=== PATIENT | male | born 1960 | race Caucasian/White ===

== ENCOUNTER 2017-09-09 22:17 | Observation (INO) | payer BC, SELFPAY ==
[2017-09-09 22:51] VITALS: BP 107/72; PULSE 70; RESP 20; TEMP 36.7; O2SAT 98; BMI 22.8
[2017-09-09 23:29] VITALS: BP 107/72; PULSE 70; RESP 20; TEMP 36.7; O2SAT 98; BMI 22.8
[2017-09-09 23:36] LABS: Bacteria Urine None Seen; RBC Urine None Seen (0-5/HPF)
[2017-09-09 23:49] LABS: Culture Indicated Urine Cult Not Indicated; WBC Urine 0-1/HPF (0-5/HPF)
[2017-09-10] VITALS (14 sets, daily range): BP systolic 109–128; BP diastolic 59–74; PULSE 68–95; RESP 14–20; TEMP 36.6–37.3; O2SAT 94–97; BMI 22.8
--- NOTE | 2017-09-10 | PATH_ITS ---
[facility] Accession Number: [id number] . 01 Material submitted: . APPENDIX . 02 Diagnosis: Appendix: Acute necrotizing appendicitis, possibly ruptured. MRV/09/14/2017 . 02 Electronically signed: . Danny Deleon MD, Pathologist NPI- [id number] . 01 Gross description: . Received in formalin, labeled appendix, is an intact appendix (length-2.5 cm, diameter-1.1 cm) with mukherjee-simon smooth and shiny focally eroded serosa and attached mesoappendix (up to 1.8 cm). The resection margin is received stapled. The lumen contains brown solid soft material. The wall is up to 0.3 cm thick. No nodules, masses or lesions are identified. The resection margin is inked black. Section code: (A1) resection margin en face and three additional serial sections; (A2) the bivalved tip. Specimen entirely submitted. ([id number]) /[facility] . 02 Pathologist provided ICD-10: K35.3 . 02 CPT . 877024 Performed at: 01 [facility] [address] [place] [address], [place], [place] [id number] MD Gerard Al MD Phone: [phone] Performed at: 02 [facility] [address] [place], [place] [id number] MD Yohan Huber MD Phone: [phone]
--- NOTE | 2017-09-10 00:30 | ED.ABDPAIN ---
HPI - Abdominal Pain General Chief Complaint: Abdominal Pain Stated Complaint: ABD PAIN NAUSEA NO APPETITE Time Seen by Provider: 09/10/17 00:12 Source: patient Mode of arrival: ambulatory Limitations: no limitations History of Present Illness HPI narrative: Patient is a 57-year-old male with right lower quadrant pain. Is been ongoing for the last 24 hr. Initially started in his umbilical region and is now down his right lower quadrant. He has not had fever or chills he is feeling nauseated no vomiting. The car ride over here. He states he has a history of kidney stones and gallstones. He has had a cholecystectomy. In this does not feel like a kidney stone. Related Data Home Medications Medication Instructions Recorded Confirmed CA PANTOTHENATE/FOLIC ACID/VIT 1 tab PO QDAY #0 05/20/11 (MULTIVITAMIN) S-ADENOSYLMETHIONINE (KOLBY-E) 200 mg PO QDAY #0 08/31/11 omega 7-owu-yqp-fish oil [Fish Oil] 1,000 mg PO #0 11/19/16 Allergies Allergy/AdvReac Type Severity Reaction Status Date / Time ketorolac [KETOROLAC] AdvReac Intermediate HIVES Verified 09/09/17 22:54 SULFA Allergy Mild PATIENT Uncoded 09/09/17 22:54 WAS 6 YRS OLD WHEN IT HAPPENED AND DOESN'T REMEMBER Review of Systems Review of Systems GENERAL: Denies chills, fatigue, malaise, fever, sweats, travel HEENT: Denies sinus pain, ear pain, sore throat, difficulty swallowing, neck pain RESPIRATORY: Denies dyspnea, cough, wheezing, hemoptysis, sputum. CARDIOVASCULAR: Denies chest pain, palpitations, orthopnea, edema GASTROINTESTINAL: see HPI : Denies dysuria, frequency, incontinence, hematuria, urinary retention, flank pain. MUSCULOSKELETAL: Denies weakness, joint pain, or bony pain SKIN: No rash, no erythema, no pruritus NEUROLOGIC: Denies weakness, dizziness, headache, numbness, change in speech, confusion PSYCHIATRIC: No concerning psychosocial issues. 12 point review of systems is negative except for those stated above and HPI PFSH Medical History GERD (gastroesophageal reflux disease) (Chronic Unknown) Chickenpox (Resolved 1993) Fractures (Resolved 1966) Gall stones (Resolved ~2011) Hx of major depression (Resolved Unknown) Kidney stones (Resolved 2002) Surgical History History of lithotripsy Status post cholecystectomy (08/31/11) Family History Father Age: 90 Diabetes mellitus Social History Smoking Status: Never smoker Exam Initial Vital Signs Initial Vital Signs: Vital Signs Temperature 98.1 F 09/09/17 22:51 Pulse Rate 70 09/09/17 22:51 Respiratory Rate 20 09/09/17 22:51 Blood Pressure 107/72 09/09/17 22:51 Pulse Oximetry 98 09/09/17 22:51 GENERAL: Well-appearing, well-nourished and in no acute distress. HEENT: Head atraumatic,EOMI, pupils reactive CARDIOVASCULAR: Regular rate and rhythm without murmurs, rubs or gallops. RESPIRATORY: Breath sounds equal bilaterally, no wheezes rales or rhonchi. ABDOMEN: Soft, right lower quadrant tenderness on with mild guarding no rebound no Parra's : No CVA tenderness EXTREMITIES: Normal range of motion, no clubbing or edema. NEUROLOGICAL: Alert and oriented x4.Normal gait and speech. Cranial nerves II through XII grossly intact. SKIN: Warm, dry, no laceration, no petechiae, no rashes or lesions. Course Orders Ordered: ED Orders 09/09/17 23:00 Urine Microscopic Stat 09/10/17 00:31 CT abdomen pelvis w con Stat 09/10/17 00:33 Complete Blood Count AUTO DIFF Stat Comprehensive Metabolic Panel Stat Lipase Stat Sodium Chloride (Normal Saline 0.9%) 1,000 mls @ 150 mls/hr IV CONT LIVAN Last Infusion: 09/10/17 03:08 Dose: 150 mls/hr Infusion: 09/10/17 01:12 Dose: 150 mls/hr Admin: 09/10/17 00:57 Dose: 150 mls/hr Discontinued Medications Levofloxacin (Levaquin) 750 mg in 150 mls @ 100 mls/hr IV NOW ONE Stop: 09/10/17 03:03 Last Infusion: 09/10/17 02:45 Dose: 100 mls/hr Admin: 09/10/17 01:40 Dose: 100 mls/hr Morphine Sulfate (Morphine) 2 mg IV NOW ONE Stop: 09/10/17 01:35 Last Admin: 09/10/17 01:38 Dose: 2 mg Consultations Consultation #1: Dr. Sumner accepts for admit. Time: 01:50 Vital Signs - 8 hr 09/09/17 22:51 09/09/17 23:29 09/10/17 01:50 Temperature 98.1 F 98.1 F 99.2 F Pulse Rate 70 70 73 Respiratory Rate 20 20 14 Blood Pressure 107/72 107/72 Blood Pressure [Left Arm] 122/74 H Pulse Oximetry 98 98 97 09/10/17 03:04 Temperature 98.8 F Pulse Rate 72 Respiratory Rate 20 Blood Pressure 118/70 Blood Pressure [Left Arm] Pulse Oximetry 96 MDM - Abdominal Pain Lab Data Attestation: I reviewed the patient's lab results. Result diagrams: 09/10/17 00:33 09/10/17 00:33 Lab Results 09/09/17 09/10/17 09/10/17 Range/Units 23:00 00:33 00:33 WBC 9.3 (4.5-11.0) X10^3/uL RBC 4.76 (4.5-5.9) X10^6/uL Hgb 14.0 (13.5-17.5) g/dL Hct 41.9 (41-53) % MCV 87.9 (80-100) fL MCH 29.5 (26-34) PG MCHC 33.5 (30-36) % RDW 13.7 (11.6-14.8) % Plt Count 190 (150-400) X10^3/uL Neut % (Auto) 73.1 (50-75) % Lymph % (Auto) 17.1 L (25-40) % Obion % (Auto) 8.1 (3-14) % Eos % (Auto) 1.1 L (2-4) % Baso % (Auto) 0.6 (0-2) % Neut # (Auto) 6800 H (7919-3158) /uL Sodium 140 (137-145) mmol/L Potassium 3.9 (3.4-5.1) mmol/L Chloride 100 (98-107) mmol/L Carbon Dioxide 30 (22-32) mmol/L BUN 11 (9-20) mg/dL Creatinine 0.90 (0.66-1.25) mg/dL Estimated GFR > 60.0 (>60) mL/min BUN/Creatinine Ratio 12.2 (6-22) Glucose 100 (70-100) mg/dL Calcium 9.4 (8.4-10.2) mg/dL Total Bilirubin 0.8 (0.2-1.3) mg/dL AST 62 H (17-59) IU/L ALT 37 (21-72) IU/L Alkaline Phosphatase 47 (38-126) U/L Total Protein 7.3 (6.3-8.2) g/dL Albumin 4.6 (3.5-5.0) g/dL Globulin 2.7 (1.7-4.1) g/dL Albumin/Globulin Ratio 1.7 (1.0-2.8) Lipase 70 (23-300) U/L Urine RBC None seen (0-5/HPF) Urine WBC 0-1/hpf (0-5/HPF) Urine Bacteria None seen (None) Ur Culture Indicated? Cult not indicated Micro UA Comment Not Reportable Point of care testing: Urine Dip Bedside Urine Glucose Negative Bedside Urine Bilirubin - Negative Bedside Urine Ketone ++ 40 Urine Specific Whitney 1.015 Bedside Urine Occult Blood - Negative Bedside Urine pH 6.0 Bedside Urine Protein - Negative Bedside Urine Urobilinogen - Negative Bedside Urine Nitrite - Negative Bedside Urine Leukocytes +/- [address] scan - abdomen: Radiologist's impression: fast food shift lead report: As appendical with an inflamed appendix measuring approximately 12 mm. His acute non perforated appendicitis. 5 mm mid left ureter stone with moderate left hydronephrosis. Discharge Plan Departure Patient Disposition: Admitted as Observation Clinical Impression: Acute appendicitis Discharge Date/Time: 09/10/17 02:45 Interventions: ED Discharge Assessment Last Done: 09/10/17 02:45 Admit Date/Time: 09/10/17 01:48 Admit Provider: Odalis Sumner
--- NOTE | 2017-09-10 00:31 | DI.CT.S_ITS ---
PROCEDURE: CT ABDOMEN PELVIS W CON INDICATIONS: Right lower quadrant pain TECHNIQUE: After the administration of intravenous contrast, 5 mm thick sections acquired from the diaphragm to the symphysis. 5 mm coronal and sagittal reformats were acquired. For radiation dose reduction, the following was used: automated exposure control, adjustment of mA and/or kV according to patient size. COMPARISON: [facility], US, US ABDOMEN, 05/12/2016, 9:59. [facility], [place], ABDOMEN COMPLETE, 05/20/2011, 19:44. FINDINGS: Image quality: Excellent. ABDOMEN: Lung bases: Lung bases are clear. Heart size is normal. Solid organs: A couple of low-density nodules are noted liver, one in the left hepatic lobe measuring 6 mm and one in the left hepatic lobe measuring 1.2 x 2.0 cm, most likely hepatic cysts or hemangioma. Liver is normal in size and enhancement. Gallbladder is surgically absent. Biliary system is non dilated. Pancreas enhances normally. Spleen is normal in size and enhancement. No adrenal nodules. There is a 5 mm stone in the proximal left ureter. Mild left hydronephrosis is present. A 2 mm focus is seen in the inferior pole the left kidney. Kidneys demonstrate normal size and enhancement. Peritoneum and bowel: Appendix is distended measuring up to 12 mm in diameter. There is an appendicolith at the base of the appendix. There is periappendiceal stranding. The CT findings are consistent with acute appendicitis. Bowel loops demonstrate normal caliber. There are scattered colonic diverticula patient now evidence for acute diverticulitis. A trace amount of free fluid is present. No free air. Nodes and vessels: No retroperitoneal or mesenteric adenopathy by size criteria. Aorta and inferior vena cava are normal in size. Miscellaneous: No ventral hernias. PELVIS: Genitourinary: Bladder wall thickness is normal. Prostate is prominent. Miscellaneous: No inguinal hernias or adenopathy. Bones: No suspicious bony lesions. No vertebral body compression fractures. IMPRESSION: 1. CT findings are consistent with acute appendicitis. 2. Left nephrolithiasis. There is 5 mm bony obstructive stone in the proximal left ureter causing mild hydronephrosis. 3. Diverticulosis without acute diverticulitis. 4. Two hepatic hypodensities, probably cysts or hemangioma. 5. Cholecystectomy. No significant discrepancy with the lieutenant shift supervisor radiology preliminary report. Dictated by: Mary Mcdonald M.D. on 09/10/2017 at 7:22 Approved by: Mary Mcdonald M.D. on 09/10/2017 at 7:34
[2017-09-10 00:43] LABS: Alanine Aminotransferase 37 IU/L (21-72); Albumin 4.6 g/dL (3.5-5.0); Albumin Globulin Ratio 1.7 (1.0-2.8); Alkaline Phosphatase 47 U/L (38-126); Aspartate Aminotransferase 62 IU/L (17-59); BUN Creatinine Ratio 12.2 (6-22); Bilirubin Total 0.8 mg/dL (0.2-1.3); Blood Urea Nitrogen 11 mg/dL (9-20); Calcium 9.4 mg/dL (8.4-10.2); Carbon Dioxide 30 mmol/L (22-32); Chloride 100 mmol/L (98-107); Estimated Glomerular Filt Rate > 60.0 mL/min (>60); Globulin 2.7 g/dL (1.7-4.1); Glucose 100 mg/dL (70-100); HEMOLYSIS < 15 (0-50); Lipase 70 U/L (23-300); Potassium 3.9 mmol/L (3.4-5.1); Sodium 140 mmol/L (137-145); Total Protein 7.3 g/dL (6.3-8.2)
[2017-09-10] MEDS: SODIUM CHLORIDE 0.9% 1,000 ML 150 ML IV (00:57)
[2017-09-10 00:59] LABS: Add Manual Diff / Slide Review NO; Basophils Percent Auto 0.6 % (0-2); Eosinophils Percent Auto 1.1 % (2-4); Hematocrit 41.9 % (41-53); Lymphocytes Percent Auto 17.1 % (25-40); Mean Corpuscular HGB Conc 33.5 % (30-36); Mean Corpuscular Hemoglobin 29.5 PG (26-34); Mean Corpuscular Volume 87.9 fL (80-100); Monocytes Percent Auto 8.1 % (3-14); Neutrophils Absolute Auto 6800 /uL (3000-5900); Neutrophils Percent Auto 73.1 % (50-75); Platelet Count 190 X10^3/uL (150-400); Red Blood Cell Count 4.76 X10^6/uL (4.5-5.9); Red Cell Distribution Width 13.7 % (11.6-14.8); White Blood Cell Count 9.3 X10^3/uL (4.5-11.0)
[2017-09-10] MEDS: SODIUM CHLORIDE 0.9% 1,000 ML 125 ML IV ×2 (01:30→09:30)
[2017-09-10] MEDS: MORPHINE 2 MG/ML INJ IV ×2 (01:38→05:49)
[2017-09-10] MEDS: levoFLOXacin 750 MG/150 ML PIGGYBACK 100 MG IV (01:40)
[2017-09-10] MEDS: LACTATED RINGERS 1,000 ML 42 ML IV ×2 (12:20→13:27)
[2017-09-10] MEDS: CEFOTETAN 2 GM/50 ML PIGGYBACK IV (12:20)
--- NOTE | 2017-09-10 13:22 | SUR.OPER ---
Supine on padded OR bed, head on pillow, arm padded and tucked at side, legs uncrossed, safety belt at thigh, tape over blanket over lower legs .
[2017-09-10] MEDS: BUPIVACAINE 0.5% MDV 50 ML INJ (13:29)
[2017-09-10] MEDS: LIDOCAINE 1% W/EPI INJ 20 ML INJ (13:30)
--- NOTE | 2017-09-10 13:34 | CM.DANOTE ---
Patient is a 57 year old male who was admitted on 09/10/17 for Abd Pain, Nausea, No appetite. Pt has [employer] OUT [employer] for insurance and his PCP is Dr. Mendosa. EMR was reviewed. Per MD, pt to have surgical procedure today and then likely d/c home tonight or tomorrow with no anticipated needs. SW met bedside with pt and explained role and he confirmed that he is Independent at baseline and drives and currently lives with his parents in [place]. Pt states that his parents are getting older but are still mostly Independent at baseline and could provide him with assist if needed. Pt does not anticipate any d/c needs and preference is home when medically stable and states that if he is not able to transport himself home then his mom could provide transportation. Pt denies any hx of HH or SNF. Plan: SW to follow after surgical procedure today towards likely pt d/c home tonight or tomorrow. SW to follow for any further identified needs. LIBORIO Sage Discharge Planning/Care Management CM Discharge Assessment Start: 09/10/17 13:28 Freq: Status: Active Protocol: Document 09/10/17 13:28 BF (Rec: 09/10/17 13:34 BF [id number]) Discharge Planning Assessment Assigned Valve Tester LIBORIO History Provided By Patient Has Patient been admitted in last 30 No days? Is this patient on Medicare? No Is the admit diagnosis the same? No Comment Api Prior Living Arrangements House Household Members family Type of transporation used prior to Drives own vehicle admit Comment Lives with his parents who are quite Independent themselves Independent with ADL's Yes Is patient alert and oriented? Yes Caregiver for Another No: helps his parents but they are independent Referrals Initiated None needed Comment surgical procedure today and then likely home with no needs . Discharge Plan Home Transportation Arrangement Parents can provide transport if pt cannot drive himself. Review Status In Process Next Review Type Discharge Review
--- NOTE | 2017-09-10 13:35 | P.HP_ITS ---
History of Present Illness Date Patient Seen: 09/10/17 Time Patient Seen: 10:33 Chief complaint: ABD PAIN NAUSEA NO APPETITE Narrative: Very pleasant and generally healthy 57-year-old gentleman who presented to the emergency room with complaint of right lower quadrant pain. He reported the pain had been ongoing for approximately 24 hr and had gradually migrated from the umbilical region to the right lower quadrant. Complained of nausea and anorexia but no vomiting. Patient History Medical History GERD (gastroesophageal reflux disease) (Chronic Unknown) Chickenpox (Resolved 1993) Fractures (Resolved 1966) Gall stones (Resolved ~2011) Hx of major depression (Resolved Unknown) Kidney stones (Resolved 2002) Surgical History History of lithotripsy Status post cholecystectomy (08/31/11) Family & Social History Family History: Reviewed 09/10/17 by Odalis Sumner MD Social History: household members family Prior Living Arrangements House Safety & Behavioral: Feels Safe in Current Yes Environment Been Physically Hurt or No Threatened By a Person Suicidal Ideation Description None Suicide Plan Description No Plan Tobacco & Substance use: Smoking Status Never smoker alcohol intake frequency a few times a month Substance Use Type does not use Meds Home Medications Medication Instructions Recorded Confirmed Type CA PANTOTHENATE/FOLIC ACID/VIT 1 tab PO QDAY #0 05/20/11 History (MULTIVITAMIN) S-ADENOSYLMETHIONINE (KOLBY-E) 200 mg PO QDAY #0 08/31/11 History omega 5-kjf-zsy-fish oil [Fish Oil] 1,000 mg PO DAILY #0 11/19/16 09/10/17 History Allergies Allergy/AdvReac Type Severity Reaction Status Date / Time Sulfa (Sulfonamide Allergy Mild PATIENT Verified 09/10/17 12:25 Antibiotics) WAS 6 YRS OLD WHEN IT HAPPENED AND DOESN'T REMEMBER ketorolac [KETOROLAC] AdvReac Intermediate HIVES Verified 09/09/17 22:54 SULFA Allergy Mild PATIENT Uncoded 09/09/17 22:54 WAS 6 YRS OLD WHEN IT HAPPENED AND DOESN'T REMEMBER Review of Systems Review of Systems All systems reviewed & are unremarkable except as noted in HPI and below Exam Vital Signs (past 8 hours): - 09/10/17 07:55 09/10/17 11:54 09/10/17 12:15 Temperature 98.5 F 98.2 F 98.4 F Pulse Rate 68 72 69 Respiratory Rate 16 16 16 Blood Pressure 116/72 125/72 H 109/68 Pulse Oximetry 97 96 97 Oxygen Delivery Method Room Air Narrative Exam Narrative: Very pleasant and healthy-appearing gentleman in no obvious distress. HEENT: Normocephalic and atraumatic, pupils equal round reactive to light accommodation with anicteric sclera Lungs: Clear to auscultation bilaterally Heart: Regular rate and rhythm without murmur rub or gallop Abdomen: Soft, profoundly tender to palpation in the right lower quadrant with some voluntary guarding and minimal rebound. Healed incisions are noted consistent with patient's history of cholecystectomy. No defects are appreciated. Active bowel sounds. Extremities: Warm and well perfused without edema Objective Labs Result Diagrams: 09/10/17 00:33 09/10/17 00:33 Labs: Laboratory Results - last 24 hr 09/09/17 09/10/17 09/10/17 23:00 00:33 00:33 WBC 9.3 RBC 4.76 Hgb 14.0 Hct 41.9 MCV 87.9 MCH 29.5 MCHC 33.5 RDW 13.7 Plt Count 190 Neut % (Auto) 73.1 Lymph % (Auto) 17.1 L Christian % (Auto) 8.1 Eos % (Auto) 1.1 L Baso % (Auto) 0.6 Neut # (Auto) 6800 H Sodium 140 Potassium 3.9 Chloride 100 Carbon Dioxide 30 BUN 11 Creatinine 0.90 Estimated GFR > 60.0 BUN/Creatinine Ratio 12.2 Glucose 100 Calcium 9.4 Total Bilirubin 0.8 AST 62 H ALT 37 Alkaline Phosphatase 47 Total Protein 7.3 Albumin 4.6 Globulin 2.7 Albumin/Globulin Ratio 1.7 Lipase 70 Urine RBC None seen Urine WBC 0-1/hpf Urine Bacteria None seen Ur Culture Indicated? Cult not indicated Micro UA Comment Not Reportable [address] [address] [address] Scan Report Signed Patient: Sudhir Butt MR#: [id number] : 1960 Acct:[id number] Age/Sex: 57 / M Date of Service: 09/10/17 Loc: [facility] Accession Number: [id number] Procedure: CT abdomen pelvis w con Ordering Provider: Josee Will D.O. PROCEDURE: CT ABDOMEN PELVIS W CON INDICATIONS: Right lower quadrant pain TECHNIQUE: After the administration of intravenous contrast, 5 mm thick sections acquired from the diaphragm to the symphysis. 5 mm coronal and sagittal reformats were acquired. For radiation dose reduction, the following was used: automated exposure control, adjustment of mA and/or kV according to patient size. COMPARISON: [facility], US, US ABDOMEN, 05/12/2016, 9:59. [facility], [place], ABDOMEN COMPLETE, 05/20/2011, 19:44. FINDINGS: Image quality: Excellent. ABDOMEN: Lung bases: Lung bases are clear. Heart size is normal. Solid organs: A couple of low-density nodules are noted liver, one in the left hepatic lobe measuring 6 mm and one in the left hepatic lobe measuring 1.2 x 2.0 cm, most likely hepatic cysts or hemangioma. Liver is normal in size and enhancement. Gallbladder is surgically absent. Biliary system is non dilated. Pancreas enhances normally. Spleen is normal in size and enhancement. No adrenal nodules. There is a 5 mm stone in the proximal left ureter. Mild left hydronephrosis is present. A 2 mm focus is seen in the inferior pole the left kidney. Kidneys demonstrate normal size and enhancement. Peritoneum and bowel: Appendix is distended measuring up to 12 mm in diameter. There is an appendicolith at the base of the appendix. There is periappendiceal stranding. The CT findings are consistent with acute appendicitis. Bowel loops demonstrate normal caliber. There are scattered colonic diverticula patient now evidence for acute diverticulitis. A trace amount of free fluid is present. No free air. Nodes and vessels: No retroperitoneal or mesenteric adenopathy by size criteria. Aorta and inferior vena cava are normal in size. Miscellaneous: No ventral hernias. PELVIS: Genitourinary: Bladder wall thickness is normal. Prostate is prominent. Miscellaneous: No inguinal hernias or adenopathy. Bones: No suspicious bony lesions. No vertebral body compression fractures. IMPRESSION: 1. CT findings are consistent with acute appendicitis. 2. Left nephrolithiasis. There is 5 mm bony obstructive stone in the proximal left ureter causing mild hydronephrosis. 3. Diverticulosis without acute diverticulitis. 4. Two hepatic hypodensities, probably cysts or hemangioma. 5. Cholecystectomy. No significant discrepancy with the overnight caregiver radiology preliminary report. Dictated by: Mary Mcdonald M.D. on 09/10/2017 at 7:22 Approved by: Mary Mcdonald M.D. on 09/10/2017 at 7:34 Assessment & Plan Plan: Assessment/Plan Narrative: Very pleasant 57-year-old gentleman with acute appendicitis who is very healthy. We discussed the risks and benefits of laparoscopic appendectomy and the patient expressed desire to complete the procedure. The operating room crew has been called. Quality VTE Deep Vein Thrombosis/Pulmonary Embolism Present on Admission: No
--- NOTE | 2017-09-10 13:39 | PM.OP.1 ---
Operative Date/Time/Diagnoses Date of procedure: 09/10/17 Time of procedure: 13:39 Pre-op diagnosis: Acute appendicitis Post-op diagnosis: same Procedure & Clinicians Procedure: Laparoscopic appendectomy Same procedure as scheduled: Yes Indications: Acute appendicitis Surgeon: Odalis Sumner Click Yes if Unassisted: Yes Anesthesia Type: General (Ahsaei) and Local Operative Notes Findings: Acute appendicitis without gross evidence of perforation Closure Type: primary Estimated Blood Loss (mL): 10 Procedure in detail: After obtaining informed consent, the patient was brought to the operating room and placed in the supine position on the operating table. Following successful induction of general endotracheal anesthesia, appropriate padding of all damon prominences, and placement of appropriate monitors, the abdomen was prepped and draped in the standard surgical fashion. A timeout was held per [facility] protocol. Following infiltration with local anesthetic to create a field block, an incision was created inferior to the umbilicus and carried down through the skin and subcutaneous tissue to reveal the fascia below. 2-0 Vicryl retention sutures were placed on either side of midline and the abdomen was entered under direct vision using an 11 blade scalpel. A 12 mm blunt-tipped Romero trocar was placed in the abdominal cavity and it was insufflated to 15 mmHg pressure. The patient was placed in Trendelenburg position with the left side rotated toward the floor. Under direct vision, a second 5 mm trocar was placed in the right upper quadrant and a third 5 mm trocar was placed midway between the umbilicus and the pubis. The camera was placed in the abdominal cavity and we immediately visualized the appendix in the anti-cecal position. The appendix was grasped and elevated to reveal its attachment to the cecum. 3 loads of a laparoscopic stapling device were used to liberate the appendix and its mesentery from its attachment to the cecum. The specimen was placed in a bag and removed via the umbilical port. The wounds were checked for hemostasis. The operative site was visualized and irrigated with warm saline solution. The abdomen was aspirated free of all fluid and particulate matter. The trochars were removed under direct vision. The abdomen was desufflated by giving the patient a large Valsalva maneuver. The umbilical incision was closed in 2 layers with Vicryl and Monocryl suture. Monocryl sutures were placed in the other 2 port sites. All sponge, needle, and instrument counts were correct at the conclusion of the case. The patient was allowed to awaken from anesthesia without difficulty and taken to the post-anesthesia care unit in good condition. Condition: stable Disposition: PACU Plan for aftercare: 1. Return to acute care 2. Discharge this afternoon when criteria are met
== END 2017-09-10 17:53 | disposition home or self-care (01) ==
LOC: ED 09-10 01:41 → AC 09-10 11:21
PROVIDERS: Admitting Provider Surgery; Emergency Provider Emergency Medicine; Family Provider Family Medicine; PCP Family Medicine; Visit Provider Surgery
PROC: 0DTJ4ZZ Resection of Appendix, Percutaneous Endoscopic Approach (ICD-10-PCS; CPT 44970; principal; 2017-09-10 12:20)
DX: K35.80 Unspecified acute appendicitis (principal); R10.31 Right lower quadrant pain
CPT/HCPCS: 44970; 36591; 74177; 80053; 81003; 81015; 83690; 85025; 96361; 96365; 96375; 99283; 99285; G0378; J0330; J1956; J2270; J2405; J2704; J3010; Q9967

== ENCOUNTER → 2017-09-13 12:40 | Outpatient (CLI) | payer BC, SELFPAY ==
[2017-09-10 03:05] VITALS: BMI 22.8
[2017-09-13 14:03] LABS: TSH w/ Reflex to FT4 2.39 uIU/mL (0.47-4.68)
[2017-09-16 12:51] LABS: Albumin 4.3 g/dL (3.6-5.1); Sex Hormone Binding Globulin 23 nmol/L (10-50); Testosterone, Bioavailable 85.7 ng/dL (110.0-575.0); Testosterone, Total 260 ng/dL (250-1100); Testosterone,Free 43.5 pg/mL (46.0-224.0)
== END ==
PROVIDERS: PCP Family Medicine; Visit Provider Family Medicine
DX: R79.89 Other specified abnormal findings of blood chemistry (principal); R53.83 Other fatigue
CPT/HCPCS: 36415; 82040; 84270; 84403; 84443

== ENCOUNTER → 2018-08-04 09:13 | Outpatient (CLI) | payer BC, SELFPAY ==
[2017-09-10 03:05] VITALS: BMI 22.8
--- NOTE | 2018-08-04 09:32 | DI.CT.S_ITS ---
PROCEDURE: CT KIDNEY URETER BLADDER (KUB) INDICATIONS: kidney stones TECHNIQUE: Noncontrast 5 mm thick sections acquired from the diaphragms to the symphysis. 5 mm thick coronal and sagittal reformats were then performed. For radiation dose reduction, the following was used: automated exposure control, adjustment of mA and/or kV according to patient size. COMPARISON: None. FINDINGS: Image quality: Excellent. Lung bases: Lung bases are clear. Heart size is normal. Urinary system: Both kidneys are normal in size. No kidney stones on the right but there is a 2 mm calculus at the lower third collecting system of the left kidney and moderate hydronephrosis associated with a 4 mm calculus located within the proximal ureter on the left. The radiodensity of this calculus is approximately 650 Hounsfield units.. No hydronephrosis or perinephric fat stranding. Both ureters appear non-dilated throughout their expected courses. Bladder wall thickness is normal; no calcified bladder stones. Other solid organs: Liver is normal in size. Gallbladder has been previously resected. Pancreas is normal in contours. Spleen is normal in size. No adrenal nodules. Peritoneum and bowel: Unenhanced bowel loops demonstrate normal wall thickness and caliber. No free fluid or air. Nodes and vessels: No retroperitoneal or mesenteric adenopathy by size criteria. Aorta and inferior vena cava are normal in caliber. Abdominal wall: No ventral hernias. Pelvis: No free pelvic fluid. No inguinal hernias or adenopathy. Bones: No suspicious bony lesions. No vertebral body compression fractures. IMPRESSION: Moderate hydronephrosis on the left associated with an impacted 4 mm calculus at the proximal ureter on the left. There is a nonobstructive small calculus within the lower third collecting system of the left kidney, independent of this process. Dictated by: Jose Fatima M.D. on 08/04/2018 at 13:24 Approved by: Jose Fatima M.D. on 08/04/2018 at 13:26
== END ==
PROVIDERS: PCP Hospitalist; Visit Provider Hospitalist
DX: N13.30 Unspecified hydronephrosis (principal); N13.2 Hydronephrosis with renal and ureteral calculous obstruction
CPT/HCPCS: 74176

== ENCOUNTER → 2018-12-12 09:40 | Outpatient (CLI) | payer BC, SELFPAY ==
[2017-09-10 03:05] VITALS: BMI 22.8
--- NOTE | 2018-12-12 09:42 | DI.RAD.S_ITS ---
PROCEDURE: XR SHOULDER RT MIN 2V INDICATIONS: right shoulder pain TECHNIQUE: 3 views of the shoulder were acquired. COMPARISON: CXR 05/20/2011. FINDINGS: Bones: No fractures or dislocations. Minimal degenerative change at the acromioclavicular joint is appreciated. No suspicious bony lesions. Visualized ribs appear intact. Soft tissues: No suspicious soft tissue calcifications. Visualized portions of the right hemithorax are clear. IMPRESSION: Minimal degenerative change at the AC joint is appreciated. If clinically indicated MRI of the shoulder could be performed for evaluation of the rotator cuff. Dictated by: Drew Noland M.D. on 12/12/2018 at 10:28 Approved by: Drew Noland M.D. on 12/12/2018 at 10:30
== END ==
PROVIDERS: PCP Hospitalist; Visit Provider Nurse Practitioner Family
DX: M25.511 Pain in right shoulder (principal)
CPT/HCPCS: 73030

== ENCOUNTER → 2018-12-30 09:38 | Outpatient (CLI) | payer BC, SELFPAY ==
[2017-09-10 03:05] VITALS: BMI 22.8
--- NOTE | 2018-12-30 09:41 | DI.MRI.S_ITS ---
PROCEDURE: MR SHOULDER RT WO CON INDICATIONS: right shoulder pain TECHNIQUE: Noncontrast oblique coronal T2 fast spin echo with fat saturation, oblique sagittal T1 spin echo and T2 fast spin echo with fat saturation, axial T1 spin echo and T2 fast spin echo with fat saturation through the shoulder. COMPARISON: None. FINDINGS: Image quality: Excellent. Rotator cuff: The supraspinatus, infraspinatus, and subscapularis tendons appear intact throughout. Sagittal images demonstrate no muscle atrophy. Bones and bursae: No bone marrow contusions or fractures. There is moderate acromioclavicular joint degeneration with fibrous and osseous hypertrophy mildly impinging on the course of the supraspinatus tendon. The acromion demonstrates conventional anatomy, without an os acromiale. No pathologic subacromial-subdeltoid or subcoracoid bursal fluid is present. Note is made of a small synovial protrusion extending medial from the anterior joint capsule, measuring up to 2.7 cm transverse and 1.2 cm AP, with a craniocaudad length of 1.3 cm Capsule and soft tissues: In the absence of intra-articular contrast, the labrum and glenohumeral ligaments appear intact. The long head of the biceps tendon demonstrates normal location and morphology. The rotator interval appears normal, without fibrosis. The coracohumeral ligament is normal in thickness. IMPRESSION: Moderate a.c. joint osteoarthritis, with mild impingement on the normal course of the supraspinatus tendon. A supraspinatus rotator cuff tear is not present. Medial synovial protrusion from the anterior medial synovial capsule, measuring up to 1.2 x 2.7 cm, as a potential etiology for focal tenderness in that region. Dictated by: Jose Fatima M.D. on 01/01/2019 at 9:43 Approved by: Jose Fatima M.D. on 01/01/2019 at 9:46
== END ==
PROVIDERS: Visit Provider Nurse Practitioner Family
DX: M25.511 Pain in right shoulder (principal); M19.011 Primary osteoarthritis, right shoulder; M75.41 Impingement syndrome of right shoulder
CPT/HCPCS: 73221

== ENCOUNTER → 2019-03-07 11:00 | Outpatient (CLI) | payer OTHER, SELFPAY ==
[2017-09-10 03:05] VITALS: BMI 22.8
[2019-03-07 11:46] LABS: Hemoglobin 13.5 g/dL (13.5-17.5); Mean Corpuscular HGB Conc 33.7 % (30-36); Mean Corpuscular Hemoglobin 29.2 PG (26-34); Mean Corpuscular Volume 86.7 fL (80-100); Platelet Count 245 X10^3/uL (150-400); Red Blood Cell Count 4.61 X10^6/uL (4.5-5.9); Red Cell Distribution Width 14.4 % (11.6-14.8); White Blood Cell Count 10.2 X10^3/uL (4.5-11.0)
[2019-03-07 12:01] LABS: Alanine Aminotransferase 30 IU/L (<50); Albumin 4.6 g/dL (3.5-5.0); Albumin Globulin Ratio 1.5 (1.0-2.8); Alkaline Phosphatase 42 U/L (38-126); Aspartate Aminotransferase 31 IU/L (17-59); BUN Creatinine Ratio 23.8 (6-22); Bilirubin Total 0.5 mg/dL (0.2-1.3); Blood Urea Nitrogen 19 mg/dL (9-20); Calcium 10.2 mg/dL (8.4-10.2); Carbon Dioxide 24 mmol/L (22-32); Chloride 104 mmol/L (98-107); Cholesterol 219 mg/dL (140-199); Estimated Glomerular Filt Rate > 60.0 mL/min (>60); Glucose 100 mg/dL (70-100); HDL Cholesterol 65 mg/dL (40-60); HEMOLYSIS 18 (0-50); LDL Cholesterol Calculated 125 mg/dL (<100); Potassium 4.2 mmol/L (3.4-5.1); Sodium 138 mmol/L (137-145); Total Protein 7.6 g/dL (6.3-8.2); Triglycerides 147 mg/dL (35-150)
[2019-03-07 12:58] LABS: TSH w/ Reflex to FT4 1.72 uIU/mL (0.47-4.68)
== END ==
PROVIDERS: PCP Nurse Practitioner Family; Visit Provider Nurse Practitioner Family
DX: R00.2 Palpitations (principal); Z13.6 Encounter for screening for cardiovascular disorders
CPT/HCPCS: 36415; 80053; 80061; 84443; 85027

== ENCOUNTER → 2019-08-16 09:52 | Outpatient (CLI) | payer OTHER, SELFPAY ==
[2019-08-15 14:47] VITALS: BMI 22.8
[2019-08-16 11:15] LABS: Hematocrit 42.3 % (41-53); Hemoglobin 14.3 g/dL (13.5-17.5); Mean Corpuscular HGB Conc 33.8 % (30-36); Mean Corpuscular Hemoglobin 29.4 PG (26-34); Mean Corpuscular Volume 87.1 fL (80-100); Platelet Count 251 X10^3/uL (150-400); Red Blood Cell Count 4.85 X10^6/uL (4.5-5.9); Red Cell Distribution Width 13.9 % (11.6-14.8); White Blood Cell Count 4.7 X10^3/uL (4.5-11.0)
[2019-08-16 14:55] LABS: Urine N gonorrhoeae NOT DETECTED
[2019-08-16 15:00] LABS: Urine Chlamydia NOT DETECTED
[2019-08-16 15:57] LABS: Hepatitis B Surface Antigen NEGATIVE s/c (NEGATIVE)
[2019-08-16 16:14] LABS: HIV 1 & 2 Ab/Ag 4th Gen Combo NEGATIVE (NEGATIVE); Hep C Virus Ab w/Reflex Quant NEGATIVE s/c (NEGATIVE)
[2019-08-17 05:36] LABS: RPR Screen Non Reactive (Non Reactive)
[2019-08-20 15:34] LABS: HSV 2 IGG AB 1.05 index (0.00-0.90)
== END ==
PROVIDERS: PCP Nurse Practitioner Family; Referring Provider Nurse Practitioner Family; Visit Provider Nurse Practitioner Family
DX: Z00.00 Encounter for general adult medical examination without abnormal findings (principal); Z20.2 Contact with and (suspected) exposure to infections with a predominantly sexual mode of transmission
CPT/HCPCS: 36415; 85027; 86592; 86695; 86696; 86803; 87340; 87389; 87491; 87591

== ENCOUNTER → 2019-09-13 11:05 | Outpatient (CLI) | payer OTHER, SELFPAY ==
[2019-08-15 14:47] VITALS: BMI 22.8
--- NOTE | 2019-09-13 | DI.CT.S_ITS ---
PROCEDURE: CT KIDNEY URETER BLADDER (KUB) INDICATIONS: KIDNEY STONE. LEFT FLANK PAIN TECHNIQUE: Noncontrast 5 mm thick sections acquired from the diaphragms to the symphysis. 5 mm thick coronal and sagittal reformats were then performed. For radiation dose reduction, the following was used: automated exposure control, adjustment of mA and/or kV according to patient size. COMPARISON: [facility], CT, CT KIDNEY URETER BLADDER (KUB), 08/04/2018, 9:17. FINDINGS: Image quality: Excellent. Lung bases: Lung bases are clear. Heart size is normal. Urinary system: Both kidneys are normal in size. No kidney stones on the right but there is a 5 mm lower 3rd renal collecting system calculus on the left, nonobstructive, and hydronephrosis on the left has resolved with resolution of a impacted proximal left ureteral stone previously present in July of last year.. No hydronephrosis or perinephric fat stranding. Both ureters appear non-dilated throughout their expected courses. Bladder wall thickness is normal; no calcified bladder stones. The left kidney calculus has a radiodensity of 671 Hounsfield units. Other solid organs: Liver is normal in size. Gallbladder has been resected. Pancreas is normal in contours. Spleen is normal in size. No adrenal nodules. Peritoneum and bowel: Unenhanced bowel loops demonstrate normal wall thickness and caliber. No free fluid or air. Nodes and vessels: No retroperitoneal or mesenteric adenopathy by size criteria. Aorta and inferior vena cava are normal in caliber. Abdominal wall: No ventral hernias. Pelvis: No free pelvic fluid. No inguinal hernias or adenopathy. Several pelvic phleboliths are present near but not superimposed upon the lower ureteral courses bilaterally. Bones: No suspicious bony lesions. No vertebral body compression fractures. IMPRESSION: 671 Hounsfield unit 5 mm calculus is present as a nonobstructive stone within the lower 3rd left renal collecting system. Resolution of a prior larger impacted stone within the left ureter, with resolution of prior left-sided hydronephrosis. Pelvic phleboliths again noted, no bladder or distal ureteral stone is found. Dictated by: Jose Fatima M.D. on 09/13/2019 at 12:23 Approved by: Jose Fatima M.D. on 09/13/2019 at 12:27
== END ==
PROVIDERS: PCP Nurse Practitioner Family; Referring Provider Urology; Visit Provider Urology
DX: N20.0 Calculus of kidney (principal); R10.9 Unspecified abdominal pain; I86.2 Pelvic varices
CPT/HCPCS: 74176

== ENCOUNTER 2020-06-20 08:29 | Emergency (ER) | payer OTHER, SELFPAY ==
[2019-08-15 14:47] VITALS: BMI 22.8
[2020-06-20 08:38] VITALS: BP 122/74; PULSE 64; RESP 16; TEMP 36.8; O2SAT 97; BMI 23.6
[2020-06-20 08:40] VITALS: BP 122/74; PULSE 63; TEMP 36.8; O2SAT 97
--- NOTE | 2020-06-20 08:59 | ED.MALEGU ---
HPI - Male Genitourinary General Chief complaint: Urogenital-Male Stated complaint: kidney stone Time Seen by Provider: 06/20/20 08:45 Source: patient Mode of arrival: Ambulatory Limitations: no limitations History of Present Illness HPI Narrative: Patient is a 60-year-old male with history of multiple kidney stones, appendectomy and bladder cancer presenting with right-sided flank pain. He said it started last night at midnight. He says it starts in his abdomen radiates to his flank. This is how his prior kidney stones have started. He denies any hematuria no nausea or vomiting. He has been taking ibuprofen 200 mg every 3 hours without much relief. Denies any fever or chills no chest pain shortness of breath. Onset (ago): hour(s) Duration: intermittent Location: right flank Severity: moderate Related Data Home Medications Medication Instructions Recorded Confirmed CA PANTOTHENATE/FOLIC ACID/VIT 1 tab PO QDAY #0 05/20/11 11/16/19 (MULTIVITAMIN) S-ADENOSYLMETHIONINE (KOLBY-E) 200 mg PO QDAY #0 08/31/11 11/16/19 omega 2-vvj-chz-fish oil [Fish Oil] 1,000 mg PO DAILY #0 11/19/16 11/16/19 Hyoscyamine 0.125 mg SUBLINGUAL QID 11/16/19 Previous Rx's Medication Instructions Recorded hyoscyamine sulfate 0.125 mg 0.125 mg PO QID PRN #45 tab 11/16/19 disintegrating tablet Allergies Allergy/AdvReac Type Severity Reaction Status Date / Time ketorolac [KETOROLAC] Allergy Intermediate HIVES Verified 11/16/19 13:37 Sulfa (Sulfonamide Allergy Mild PATIENT Verified 11/16/19 13:37 Antibiotics) WAS 6 YRS OLD WHEN IT HAPPENED AND DOESN'T REMEMBER Review of Systems Review of Systems Narrative: GENERAL: Denies chills, fatigue, malaise, fever, sweats, travel HEENT: Denies sinus pain, ear pain, sore throat, difficulty swallowing, neck pain RESPIRATORY: Denies dyspnea, cough, wheezing, hemoptysis, sputum. CARDIOVASCULAR: Denies chest pain, palpitations, orthopnea, edema GASTROINTESTINAL: Denies nausea, vomiting, abdominal pain, diarrhea, constipation, melena. : See HPI MUSCULOSKELETAL: Denies weakness, joint pain, or bony pain SKIN: No rash, no erythema, no pruritus NEUROLOGIC: Denies weakness, dizziness, headache, numbness, change in speech, confusion PSYCHIATRIC: No concerning psychosocial issues. 12 point review of systems is negative except for those stated above and HPI Patient History Medical History Acute appendicitis Bilateral tinnitus Chickenpox (1993) Colon polyps Encounter for well adult exam with abnormal findings Fractures (1966) Gall stones (~2011) GERD (gastroesophageal reflux disease) (Unknown) History of bladder cancer Hx of major depression (Unknown) IBS (irritable bowel syndrome) Intermittent palpitations Kidney stones (2002) Low back pain Low testosterone in male Other depression (04/07/15) Penile lump (07/2019) Possible exposure to STD Surgical History History of lithotripsy S/P appendectomy Status post cholecystectomy (08/31/11) Family History Father Age: 93 Diabetes mellitus Social History household members: family Smoking Status: Never smoker alcohol intake: current (~1-2 drinks per week ) Smoking Status: Never smoker alcohol intake frequency: a few times a month Substance Use Type: does not use Exam Initial Vital Signs Initial Vital Signs: Vital Signs Temperature 98.2 F 06/20/20 08:38 Pulse Rate 64 06/20/20 08:38 Respiratory Rate 16 06/20/20 08:38 Blood Pressure 122/74 06/20/20 08:38 Pulse Oximetry 97 06/20/20 08:38 GENERAL: Alert 60-year-old male and in no acute distress. HEENT: Head atraumatic,EOMI, pupils reactive, face symmetric, moist mucous membranes CARDIOVASCULAR: Regular rate and rhythm without murmurs, rubs or gallops. RESPIRATORY: Breath sounds equal bilaterally, no wheezes rales or rhonchi. ABDOMEN: Soft, nontender. Normoactive bowel sounds all 4 quadrants. No guarding or rebound. : Right CVA tenderness EXTREMITIES: Normal range of motion, no clubbing or edema. Neurovascularly intact NEUROLOGICAL: Alert and oriented x4.Normal gait and speech. SKIN: Warm, dry, no laceration, no petechiae, no rashes or lesions. Course Orders Ordered: ED Orders 06/20/20 08:55 Complete Blood Count AUTO DIFF Stat Comprehensive Metabolic Panel Stat Lipase Stat 06/20/20 09:05 CT kidney ureter bladder (KUB) Stat Discontinued Medications Lidocaine HCl 5.3 ml/ Sodium (Chloride) 55.3 mls @ 331.8 mls/hr IV NOW ONE Stop: 06/20/20 08:56 Last Infusion: 06/20/20 09:26 Dose: 0 mls/hr Documented by: Admin: 06/20/20 09:12 Dose: 331.8 mls/hr Documented by: MARIKA Sodium Chloride (Normal Saline 0.9%) 1,000 mls @ 1,000 mls/hr IV CONT LIVAN Last Infusion: 06/20/20 10:03 Dose: 0 mls/hr Documented by: Admin: 06/20/20 09:11 Dose: 1,000 mls/hr Documented by: MARIKA Vital Signs Vital signs: Vital Signs - 8 hr 06/20/20 08:38 06/20/20 08:40 06/20/20 10:04 Temperature 98.2 F 98.2 F Pulse Rate 64 63 60 Respiratory Rate 16 16 Blood Pressure 122/74 122/74 117/73 Pulse Oximetry 97 97 98 MDM - Male Genitourinary Lab Data Attestation: I reviewed the patient's lab results. Result diagrams: 06/20/20 08:55 06/20/20 08:55 Labs: Lab Results 06/20/20 06/20/20 Range/Units 08:55 08:55 WBC 4.5 (4.5-11.0) X10^3/uL RBC 4.89 (4.5-5.9) X10^6/uL Hgb 13.9 (13.5-17.5) g/dL Hct 41.6 (41-53) % MCV 85.2 (80-100) fL MCH 28.5 (26-34) PG MCHC 33.5 (30-36) % RDW 14.6 (11.6-14.8) % Plt Count 266 (150-400) X10^3/uL Neut % (Auto) 44.7 L (50-75) % Lymph % (Auto) 40.1 H (25-40) % [place] % (Auto) 10.6 (3-14) % Eos % (Auto) 3.7 (2-4) % Baso % (Auto) 0.9 (0-2) % Neut # (Auto) 2000 (4420-1319) /uL Lymph # (Auto) 1800 (9198-7228) /uL [place] # (Auto) 500 (0-900) /uL Eos # (Auto) 200 (0-450) /uL Baso # (Auto) 0 (0-100) /uL Sodium 136 L (137-145) mmol/L Potassium 4.6 (3.4-5.1) mmol/L Chloride 104 (98-107) mmol/L Carbon Dioxide 26 (22-32) mmol/L BUN 18 (9-20) mg/dL Creatinine 0.84 (0.66-1.25) mg/dL Estimated GFR > 60.0 (>60) mL/min BUN/Creatinine Ratio 21.4 (6-22) Glucose 93 (70-100) mg/dL Calcium 9.8 (8.4-10.2) mg/dL Total Bilirubin 0.4 (0.2-1.3) mg/dL AST 37 (17-59) IU/L ALT 26 (<50) IU/L Alkaline Phosphatase 39 (38-126) U/L Total Protein 7.1 (6.3-8.2) g/dL Albumin 4.3 (3.5-5.0) g/dL Globulin 2.8 (1.7-4.1) g/dL Albumin/Globulin Ratio 1.5 (1.0-2.8) Lipase 155 (23-300) U/L Urine Dip Bedside Urine Glucose Negative Bedside Urine Bilirubin - Negative Bedside Urine Ketone - Negative Urine Specific [place] 1.010 Bedside Urine Occult Blood - Negative Bedside Urine pH 6.0 Bedside Urine Protein - Negative Bedside Urine Urobilinogen +/- 1mg Bedside Urine Nitrite - Negative Bedside Urine Leukocytes - Negative Esterase Imaging Data CT scan - abdomen/pelvis: Radiologist's Impression: PROCEDURE: CT KIDNEY URETER BLADDER (KUB) INDICATIONS: right flank pain TECHNIQUE: Noncontrast 5 mm thick sections acquired from the diaphragms to the symphysis. 5 mm thick coronal and sagittal reformats were then performed. For radiation dose reduction, the following was used: automated exposure control, adjustment of mA and/or kV according to patient size. COMPARISON: [facility], CT, CT KIDNEY URETER BLADDER (KUB), 08/04/2018, 9:17. CT, CT ABDOMEN PELVIS W CON, 09/10/2017, 0:28. [facility], CT, CT KIDNEY URETER BLADDER (KUB), 09/13/2019, 11:23. FINDINGS: Image quality: Excellent. Lung bases: Lung bases are clear. Heart size is normal. Urinary system: There are 3 nonobstructive stones in the left kidney within the inferior pole measuring 2-5 mm. No right renal stone or ureteral stones. Both kidneys are normal in size. No hydronephrosis or perinephric fat stranding. Left ureter is slightly patulous. No left ureteral stones. Bladder wall thickness is normal; no calcified bladder stones. Prostate is prominent. Other solid organs: Liver is mildly enlarged. Gallbladder is surgically absent. Pancreas is normal in contours. Spleen is normal in size. No adrenal nodules. Peritoneum and bowel: Unenhanced bowel loops demonstrate normal wall thickness and caliber. There are scattered colonic diverticula in sigmoid colon. No CT findings to suggest acute diverticulitis. No free fluid or air. Nodes and vessels: No retroperitoneal or mesenteric adenopathy by size criteria. Aorta and inferior vena cava are normal in caliber. Abdominal wall: No ventral hernias. Pelvis: No free pelvic fluid. No inguinal hernias or adenopathy. Bones: No suspicious bony lesions. No vertebral body compression fractures. IMPRESSION: 1. A cause for right flank pain is not identified. No right urinary stones or hydronephrosis. 2. Nonobstructive left renal calculi. The left ureter is slightly patulous. No left ureter stone. No left hydronephrosis or hydroureter. 3. Diverticulosis without diverticulitis. 4. Enlarged prostate. 5. Mild hepatomegaly. Dictated by: Mary Mcdonald M.D. on 06/20/2020 at 9:30 MDM Narrative Medical decision making narrative: Patient has a history of multiple kidney stones but has history of cholecystectomy and appendectomy. CT does not show any kidney stone urine is clean. Patient remembers that he actually lifted quite a lot of heavy things yesterday and maybe hurt his back. Pain is certainly worse with movement. At this time pain is likely musculoskeletal rather than other etiology. Pain is better after lidocaine drip. He denies any radiation down his leg. Pain is worse actually when he lifts his right leg in his lower back. No changes in bowel or bladder habits no fever. Discharge Plan Departure Patient Disposition: Home Clinical Impression: Low back pain Qualifiers: Chronicity: acute Back pain laterality: right Sciatica presence: without sciatica Qualified Code(s): M54.5 - Low back pain Instructions: DI for Low Back Pain Activity Restrictions/Additional Instructions: *You have been diagnosed with low back pain *What to do: At this time pain is likely from pulled muscle. Recommend heating pad, light stretching and light activity. No strenuous activity or heavy lifting *Continue to take medications as directed Ibuprofen 800 mg every 8 hours if needed for hipg-nm-pighiecm pain *Follow up with your primary care provider in 2-3 days *Return to ER if you should have increasing pain, changes in bowel or bladder habits, weakness in legs or any new, worsening or concerning symptoms Prescriptions: No Action CA PANTOTHENATE/FOLIC ACID/VIT (MULTIVITAMIN) 1 tab PO QDAY Qty: 0 RF: 0 S-ADENOSYLMETHIONINE (KOLBY-E) 200 mg PO QDAY Qty: 0 RF: 0 omega 1-hvr-wgr-fish oil [Fish Oil] 1,000 MG capsule 1,000 mg PO DAILY Qty: 0 RF: 0 Hyoscyamine tablet 0.125 mg sublingual QID RF: 0 hyoscyamine sulfate 0.125 mg tablet,disintegrating 0.125 mg PO QID PRN (Reason: dyspepsia) Qty: 45 RF: 0 Referrals: Musa Menon MD [Primary Care Provider] -
[2020-06-20 09:02] LABS: Add Manual Diff / Slide Review NO; Basophils Absolute Auto 0 /uL (0-100); Basophils Percent Auto 0.9 % (0-2); Eosinophils Absolute Auto 200 /uL (0-450); Eosinophils Percent Auto 3.7 % (2-4); Hematocrit 41.6 % (41-53); Hemoglobin 13.9 g/dL (13.5-17.5); Lymphocytes Absolute Auto 1800 /uL (1100-4500); Lymphocytes Percent Auto 40.1 % (25-40); Mean Corpuscular HGB Conc 33.5 % (30-36); Mean Corpuscular Hemoglobin 28.5 PG (26-34); Mean Corpuscular Volume 85.2 fL (80-100); Monocytes Absolute Auto 500 /uL (0-900); Monocytes Percent Auto 10.6 % (3-14); Neutrophils Absolute Auto 2000 /uL (1500-7000); Neutrophils Percent Auto 44.7 % (50-75); Platelet Count 266 X10^3/uL (150-400); Red Blood Cell Count 4.89 X10^6/uL (4.5-5.9); Red Cell Distribution Width 14.6 % (11.6-14.8); White Blood Cell Count 4.5 X10^3/uL (4.5-11.0)
--- NOTE | 2020-06-20 09:05 | DI.CT.S_ITS ---
PROCEDURE: CT KIDNEY URETER BLADDER (KUB) INDICATIONS: right flank pain TECHNIQUE: Noncontrast 5 mm thick sections acquired from the diaphragms to the symphysis. 5 mm thick coronal and sagittal reformats were then performed. For radiation dose reduction, the following was used: automated exposure control, adjustment of mA and/or kV according to patient size. COMPARISON: [facility], CT, CT KIDNEY URETER BLADDER (KUB), 08/04/2018, 9:17. CT, CT ABDOMEN PELVIS W CON, 09/10/2017, 0:28. [facility], CT, CT KIDNEY URETER BLADDER (KUB), 09/13/2019, 11:23. FINDINGS: Image quality: Excellent. Lung bases: Lung bases are clear. Heart size is normal. Urinary system: There are 3 nonobstructive stones in the left kidney within the inferior pole measuring 2-5 mm. No right renal stone or ureteral stones. Both kidneys are normal in size. No hydronephrosis or perinephric fat stranding. Left ureter is slightly patulous. No left ureteral stones. Bladder wall thickness is normal; no calcified bladder stones. Prostate is prominent. Other solid organs: Liver is mildly enlarged. Gallbladder is surgically absent. Pancreas is normal in contours. Spleen is normal in size. No adrenal nodules. Peritoneum and bowel: Unenhanced bowel loops demonstrate normal wall thickness and caliber. There are scattered colonic diverticula in sigmoid colon. No CT findings to suggest acute diverticulitis. No free fluid or air. Nodes and vessels: No retroperitoneal or mesenteric adenopathy by size criteria. Aorta and inferior vena cava are normal in caliber. Abdominal wall: No ventral hernias. Pelvis: No free pelvic fluid. No inguinal hernias or adenopathy. Bones: No suspicious bony lesions. No vertebral body compression fractures. IMPRESSION: 1. A cause for right flank pain is not identified. No right urinary stones or hydronephrosis. 2. Nonobstructive left renal calculi. The left ureter is slightly patulous. No left ureter stone. No left hydronephrosis or hydroureter. 3. Diverticulosis without diverticulitis. 4. Enlarged prostate. 5. Mild hepatomegaly. Dictated by: Mary Mcdonald M.D. on 06/20/2020 at 9:30 Approved by: Mary Mcdonald M.D. on 06/20/2020 at 9:40
[2020-06-20 09:10] LABS: Alanine Aminotransferase 26 IU/L (<50); Albumin 4.3 g/dL (3.5-5.0); Albumin Globulin Ratio 1.5 (1.0-2.8); Alkaline Phosphatase 39 U/L (38-126); Aspartate Aminotransferase 37 IU/L (17-59); BUN Creatinine Ratio 21.4 (6-22); Bilirubin Total 0.4 mg/dL (0.2-1.3); Blood Urea Nitrogen 18 mg/dL (9-20); Calcium 9.8 mg/dL (8.4-10.2); Carbon Dioxide 26 mmol/L (22-32); Chloride 104 mmol/L (98-107); Estimated Glomerular Filt Rate > 60.0 mL/min (>60); Globulin 2.8 g/dL (1.7-4.1); Glucose 93 mg/dL (70-100); HEMOLYSIS 49 (0-50); Lipase 155 U/L (23-300); Potassium 4.6 mmol/L (3.4-5.1); Sodium 136 mmol/L (137-145); Total Protein 7.1 g/dL (6.3-8.2)
[2020-06-20] MEDS: SODIUM CHLORIDE 0.9% 1,000 ML 1000 ML IV (09:11)
[2020-06-20] MEDS: LIDOCAINE 2% 5.3 ML in SODIUM CHLORIDE 0.9% 50 ML 331.8 ML IV (09:12)
[2020-06-20 10:04] VITALS: BP 117/73; PULSE 60; RESP 16; O2SAT 98
== END 2020-06-20 10:05 | disposition home or self-care (01) ==
PROVIDERS: Emergency Provider Emergency Medicine; PCP Family Medicine
DX: M54.5 Low back pain (principal); Z87.442 Personal history of urinary calculi
CPT/HCPCS: 36415; 74176; 80053; 81003; 83690; 85025; 96361; 96374; 99284

== ENCOUNTER → 2020-07-14 12:40 | Outpatient (CLI) | payer OTHER, SELFPAY ==
[2019-08-15 14:47] VITALS: BMI 22.8
[2020-07-21 16:07] LABS: Ca oxalate dihydrate 50 % (.); Ca oxalate monohydr 45 % (.); Hydroxyapatite 5 % (.); Size 3x5 mm (.)
== END ==
PROVIDERS: PCP Family Medicine; Referring Provider Family Medicine; Visit Provider Family Medicine
DX: N20.0 Calculus of kidney (principal)
CPT/HCPCS: 82365

== ENCOUNTER → 2021-05-14 08:31 | Outpatient (CLI) | payer OTHER, MEDICAID, SELFPAY ==
[2019-08-15 14:47] VITALS: BMI 22.8
[2021-05-14 10:18] LABS: Add Manual Diff / Slide Review NO; Basophils Absolute Auto 0 /uL (0-100); Eosinophils Absolute Auto 200 /uL (0-450); Eosinophils Percent Auto 3.4 % (2-4); Hematocrit 41.3 % (41-53); Hemoglobin 14.2 g/dL (13.5-17.5); Lymphocytes Absolute Auto 1800 /uL (1100-4500); Lymphocytes Percent Auto 37.5 % (25-40); Mean Corpuscular HGB Conc 34.4 % (30-36); Mean Corpuscular Hemoglobin 29.2 PG (26-34); Mean Corpuscular Volume 84.9 fL (80-100); Monocytes Absolute Auto 500 /uL (0-900); Monocytes Percent Auto 10.2 % (3-14); Neutrophils Absolute Auto 2300 /uL (1500-7000); Neutrophils Percent Auto 47.9 % (50-75); Platelet Count 217 X10^3/uL (150-400); Red Blood Cell Count 4.86 X10^6/uL (4.5-5.9); White Blood Cell Count 4.8 X10^3/uL (4.5-11.0)
[2021-05-14 10:40] LABS: Alanine Aminotransferase 47 IU/L (<50); Albumin 4.4 g/dL (3.5-5.0); Albumin Globulin Ratio 1.6 (1.0-2.8); Alkaline Phosphatase 42 U/L (38-126); Aspartate Aminotransferase 37 IU/L (17-59); BUN Creatinine Ratio 14.7 (6-22); Bilirubin Total 0.5 mg/dL (0.2-1.3); Blood Urea Nitrogen 14 mg/dL (9-20); Calcium 8.9 mg/dL (8.4-10.2); Carbon Dioxide 28 mmol/L (22-32); Chloride 104 mmol/L (98-107); Cholesterol 242 mg/dL (140-199); Estimated Glomerular Filt Rate > 60.0 mL/min (>60); Globulin 2.7 g/dL (1.7-4.1); Glucose 91 mg/dL (70-100); HDL Cholesterol 57 mg/dL (40-60); HEMOLYSIS < 15 (0-50); LDL Cholesterol Calculated 159 mg/dL (<100); Potassium 4.3 mmol/L (3.4-5.1); Sodium 140 mmol/L (137-145); Total Protein 7.1 g/dL (6.3-8.2); Triglycerides 128 mg/dL (35-150)
[2021-05-14 10:53] LABS: Vitamin D 25 Hydroxy (D3) 76.9 ng/mL (30.0-100.0)
[2021-05-14 11:06] LABS: TSH w/ Reflex to FT4 2.38 uIU/mL (0.47-4.68)
[2021-05-14 11:27] LABS: Vitamin B12 695 pg/mL (239-931)
== END ==
PROVIDERS: PCP Family Medicine; Referring Provider Family Medicine; Visit Provider Family Medicine
DX: R79.89 Other specified abnormal findings of blood chemistry (principal); R00.2 Palpitations; E78.5 Hyperlipidemia, unspecified
CPT/HCPCS: 36415; 80053; 80061; 82306; 82607; 84443; 85025

== ENCOUNTER → 2021-05-18 15:22 | Outpatient (CLI) | payer OTHER, MEDICAID, SELFPAY ==
[2019-08-15 14:47] VITALS: BMI 22.8
[2021-05-24 17:36] LABS: Percent Free Testosterone 2.13 % (1.50-4.20); Testosterone Free 4.13 ng/dL (5.00-21.00); Testosterone Total 194.1 ng/dL (264.0-916.0)
== END ==
PROVIDERS: PCP Family Medicine; Referring Provider Family Medicine; Visit Provider Family Medicine
DX: R79.89 Other specified abnormal findings of blood chemistry (principal)
CPT/HCPCS: 36415; 84402; 84403

== ENCOUNTER → 2021-06-02 07:44 | Outpatient (CLI) | payer OTHER, MEDICAID, SELFPAY ==
[2019-08-15 14:47] VITALS: BMI 22.8
--- NOTE | 2021-06-17 10:47 | PM.CARDMON.1 ---
[employer] Report Referral & Results Date Patient Seen: 06/01/21 Requesting provider: Musa Menon Indication: Palpitations Duration of monitoring (days): 7 Diary information: There were 9 patient triggered events and 5 patient diary entries All of these patient events were variably associated with (within 45 seconds) sinus rhythm, PVCs, and ventricular bigeminy Data: Minimum heart rate identified was 40 beats per minute at 01:24 on 06/08/2021 Maximum sinus heart rate was 167 beats per minute at 17:40 on 06/05/2021 Less than 1% of identified beats were supraventricular ectopic in origin which would classify them as rare Approximately 8.6% of identified beats were ventricular ectopic in origin which would classify them as frequent, this included a 1 minutes 16 second run of ventricular bigeminy as well as a 16.7 second run of ventricular trigeminy There were no runs of SVT, atrial fibrillation, or pauses of 3 seconds or longer identified on this study Impression: Patient with frequent PVCs as a possible source of symptoms as above Clinical correlation suggested
== END ==
PROVIDERS: Family Provider Family Medicine; PCP Family Medicine; Referring Provider Family Medicine; Visit Provider Family Medicine
DX: R00.2 Palpitations (principal)
CPT/HCPCS: 93242; 93248

== ENCOUNTER → 2021-08-19 11:30 | Outpatient (CLI) | payer OTHER, MEDICAID, SELFPAY ==
[2019-08-15 14:47] VITALS: BMI 22.8
--- NOTE | 2021-08-19 11:32 | DI.RAD.S_ITS ---
PROCEDURE: XR SHOULDER LT MIN 2V INDICATIONS: Left shoulder pain TECHNIQUE: 3 views of the shoulder were acquired. COMPARISON: [facility], CR, XR SHOULDER RT MIN 2V, 12/12/2018, 9:47. FINDINGS: Bones: No fractures or dislocations. No suspicious bony lesions. Visualized ribs appear intact. Mild periarticular osteophyte formation at the acromioclavicular joint. Soft tissues: No suspicious soft tissue calcifications. IMPRESSION: Osteoarthritis. No acute fracture. No osseous lesion. If symptoms and/or clinical suspicion for pathology persist, further assessment with repeat, or advanced imaging (e.g., CT, MRI, or bone scan) may be helpful for further assessment. Dictated by: Jay Chino M.D. on 08/19/2021 at 12:00 Approved by: Jay Chino M.D. on 08/19/2021 at 12:00
== END ==
PROVIDERS: Family Provider Family Medicine; PCP Family Medicine; Referring Provider Student in an Organized Health Care Education/Training Program; Visit Provider Student in an Organized Health Care Education/Training Program
DX: M25.512 Pain in left shoulder (principal); M19.012 Primary osteoarthritis, left shoulder
CPT/HCPCS: 73030

== ENCOUNTER → 2021-09-18 09:12 | Outpatient (CLI) | payer OTHER, MEDICAID, SELFPAY ==
[2019-08-15 14:47] VITALS: BMI 22.8
--- NOTE | 2021-09-18 09:15 | DI.MRI.S_ITS ---
PROCEDURE: MR SHOULDER LT WO CON INDICATIONS: Left shoulder pain TECHNIQUE: Noncontrast oblique coronal T2 fast spin echo with fat saturation, oblique sagittal T1 spin echo and T2 fast spin echo with fat saturation, axial T1 spin echo and T2 fast spin echo with fat saturation through the shoulder. COMPARISON: [facility], CR, XR SHOULDER LT MIN 2V, 08/19/2021, 11:36. FINDINGS: Image quality: Excellent. Rotator cuff: There is partial-thickness, interstitial tear of the supraspinatus tendon. No tendon retraction or supraspinatus muscle atrophy. There is low-grade infraspinatus and subscapularis tendinosis. Sagittal images demonstrate rotator cuff muscle atrophy. Bones and bursae: No bone marrow contusions or fractures. Moderate acromioclavicular and mild glenohumeral joint degeneration. The acromion demonstrates conventional anatomy, without an os acromiale. There is subcoracoid bursal fluid consistent with bursitis. Moderate glenohumeral joint effusion. Capsule and soft tissues: There is inferior labral fraying. There is edema in the inferior glenohumeral ligament, consistent with partial tear or sprain. The long head of the biceps tendon demonstrates normal location and morphology. The rotator interval appears irregular. The coracohumeral ligament is thickened. IMPRESSION: 1. Partial thickness tear of supraspinatus tendon. 2. Low-grade infraspinatus and subscapularis tendinosis. 3. Inferior labral fraying and partial tear or sprain of the inferior glenohumeral ligament. 4. Subcoracoid bursal fluid suggesting bursitis. 5. Thickened coracohumeral ligament and irregular rotator interval. These findings are associated with adhesive capsulitis. Recommend clinical correlation. 6. Moderate acromioclavicular and mild glenohumeral joint degeneration. Dictated by: Mary Mcdonald M.D. on 09/18/2021 at 11:36 Approved by: Mary Mcdonald M.D. on 09/18/2021 at 11:49
== END ==
PROVIDERS: Family Provider Family Medicine; PCP Family Medicine; Referring Provider Student in an Organized Health Care Education/Training Program; Visit Provider Student in an Organized Health Care Education/Training Program
DX: M75.112 Incomplete rotator cuff tear or rupture of left shoulder, not specified as traumatic (principal); M19.012 Primary osteoarthritis, left shoulder; S43.492A Other sprain of left shoulder joint, initial encounter; M25.512 Pain in left shoulder
CPT/HCPCS: 73221

== ENCOUNTER → 2022-05-31 08:34 | Outpatient (CLI) | payer OTHER, MEDICAID, SELFPAY ==
[2019-08-15 14:47] VITALS: BMI 22.8
[2022-05-31 10:15] LABS: Alanine Aminotransferase 54 IU/L (<50); Albumin 4.3 g/dL (3.5-5.0); Albumin Globulin Ratio 1.6 (1.0-2.8); Alkaline Phosphatase 48 U/L (38-126); Aspartate Aminotransferase 34 IU/L (17-59); BUN Creatinine Ratio 16.1 (6-22); Bilirubin Total 0.5 mg/dL (0.2-1.3); Blood Urea Nitrogen 15 mg/dL (9-20); Calcium 9.4 mg/dL (8.4-10.2); Carbon Dioxide 30 mmol/L (22-32); Chloride 102 mmol/L (98-107); Cholesterol 244 mg/dL (140-199); Estimated Glomerular Filt Rate > 60 mL/min (>60); Globulin 2.7 g/dL (1.7-4.1); Glucose 88 mg/dL (80-110); HDL Cholesterol 58 mg/dL (40-60); HEMOLYSIS < 15 (0-50); LDL Cholesterol Calculated 161 mg/dL (<100); Potassium 4.7 mmol/L (3.4-5.1); Sodium 137 mmol/L (137-145); Triglycerides 123 mg/dL (35-150)
[2022-05-31 10:43] LABS: Prostate Specific Antigen Scrn 1.21 ng/mL (0.1-4.0)
[2022-05-31 10:44] LABS: TSH w/ Reflex to FT4 1.68 uIU/mL (0.47-4.68)
[2022-06-07 10:03] LABS: Percent Free Testosterone 3.16 % (1.50-4.20); Testosterone Free 10.82 ng/dL (5.00-21.00); Testosterone Total 342.5 ng/dL (264.0-916.0)
== END ==
PROVIDERS: Family Provider Family Medicine; PCP Family Medicine; Referring Provider Family Medicine; Visit Provider Family Medicine
DX: D49.2 Neoplasm of unspecified behavior of bone, soft tissue, and skin (principal); E78.5 Hyperlipidemia, unspecified; R79.89 Other specified abnormal findings of blood chemistry; Z12.5 Encounter for screening for malignant neoplasm of prostate
CPT/HCPCS: 36415; 80053; 80061; 82306; 84402; 84403; 84443; G0103

== ENCOUNTER 2023-04-30 10:57 | Emergency (ER) | payer OTHER, SELFPAY ==
[2019-08-15 14:47] VITALS: BMI 22.8
[2023-04-30 11:01] VITALS: BP 145/87; PULSE 71; RESP 16; TEMP 36.4; O2SAT 100; BMI 25.4
--- NOTE | 2023-04-30 11:07 | DI.CT.S_ITS ---
PROCEDURE: CT ORBIT BI WO CON INDICATIONS: r/o retinal detachement TECHNIQUE: Noncontrast 2.5 mm axial images acquired through the orbits, with coronal and sagittal reformats. For radiation dose reduction, the following was used: automated exposure control, adjustment of mA and/or kV according to patient size. COMPARISON: None. FINDINGS: Image quality: Excellent. Orbits: Globes are symmetrical. No metallic foreign bodies. The optic nerves are normal in size. No retrobulbar masses or fat abnormalities. The extra-ocular muscles are normal and symmetrical in appearance. Lacrimal glands are normal in size. Optic chiasm is normal. Intracranial: Visualized portions of the cerebral hemispheres, brainstem, and spinal cord are normal. Bones and sinuses: Visualized calvarium and facial bones appear intact. Small left mucosal retention cysts of the maxillary sinuses. The remaining visualized sinuses and mastoids are clear. IMPRESSION: Normal CT appearance of the orbits. Dictated by: Elver Orellana M.D. on 04/30/2023 at 10:25 Approved by: Elver Orellana M.D. on 04/30/2023 at 10:29
--- NOTE | 2023-04-30 13:08 | ED.EYEPROB ---
HPI - Eye Problem <Radha Porter PA-C - Last Filed: 04/30/23 14:52> General Chief complaint: Eye Problems Stated complaint: flashes of light in eyes Time Seen by Provider: 04/30/23 11:30 History of Present Illness HPI Narrative: 62-year-old male with no chronic medical problems here for a visual disturbance that occurred this morning. States that he was sitting on his computer and eating breakfast when he experienced flashes of light which she describes as a lightening bolt with psychedelics colors. States that these were present with his eyes open and closed and he could not differentiate which eye they were occurring in. States that they were interfering slightly with his vision because they were located in the central part of his vision. These flashes of light lasted for approximately 30 minutes before gradually fading. At this time he has no visual disturbances and feels his vision is at his normal baseline. He has 1 floater in his left eye that has been present for a long time and has not changed. He denies any other symptoms at the time of the visual disturbance-no headache, confusion, weakness, dizziness, or other symptoms and he denies any symptoms currently. He did not and has not had any headache today before after the visual disturbance. He has no history of migraines. No history of diabetes or high blood pressure. Related Data Home Medications Medication Instructions Recorded Confirmed CA PANTOTHENATE/FOLIC ACID/VIT 1 tab PO QDAY ##0 05/20/11 04/27/23 (MULTIVITAMIN) S-ADENOSYLMETHIONINE (KOLBY-E) 200 mg PO QDAY ##0 08/31/11 04/27/23 omega 2-mbh-tgt-fish oil 1,000 mg 1,000 mg PO DAILY ##0 11/19/16 04/27/23 (120 mg-180 mg) capsule (Fish Oil) Previous Rx's Medication Instructions Recorded hyoscyamine sulfate 0.125 mg 0.125 mg PO BID-QID PRN dyspepsia 11/16/21 disintegrating tablet #30 tabs azelastine 137 mcg-fluticasone 50 1 spray intranasal BID #23 grams 07/28/22 mcg/spray nasal spray Allergies Allergy/AdvReac Type Severity Reaction Status Date / Time Sulfa (Sulfonamide Allergy Mild PATIENT Verified 04/30/23 11:01 Antibiotics) WAS 6 YRS OLD WHEN IT HAPPENED AND DOESN'T REMEMBER ketorolac [KETOROLAC] AdvReac Intermediate HIVES Verified 04/30/23 11:01 Review of Systems <Radha Porter PA-C - Last Filed: 04/30/23 14:52> Review of Systems ROS Unobtainable: All systems reviewed & are unremarkable except as noted in HPI and below Patient History <Radha Porter PA-C - Last Filed: 04/30/23 14:52> Medical History (Updated 04/30/23 @ 13:17 by Radha Porter PA-C) Hyperlipidemia Hearing loss Tinnitus of both ears Colon polyps Bilateral tinnitus Encounter for well adult exam with abnormal findings History of bladder cancer Penile lump (07/2019) Possible exposure to STD Low back pain Intermittent palpitations IBS (irritable bowel syndrome) Low testosterone in male Acute appendicitis GERD (gastroesophageal reflux disease) (Unknown) Chickenpox (1993) Fractures (1966) Kidney stones (2002) Gall stones (~2011) Surgical History S/P appendectomy History of lithotripsy Status post cholecystectomy (08/31/11) Family History Father Age: 96 Diabetes mellitus Social History household members: family Smoking Status: Never smoker alcohol intake: current (~1-2 drinks per week ) Smoking Status: Never smoker alcohol intake frequency: a few times a month Substance Use Type: does not use Exam <Radha Porter PA-C - Last Filed: 04/30/23 14:52> Narrative Exam Narrative: GENERAL: [62] year old patient appears stated age. Well-developed patient, in no acute distress. Speaking in full sentences HEAD: Atraumatic. Normocephalic. EYES: Pupils equal round and reactive. Extraocular motions intact. No scleral icterus. No injection or drainage. Normal peripheral vision. Visual acuity checked and at patient's baseline ENT: Nose without bleeding, purulent drainage. Throat without erythema, tonsillar hypertrophy or exudate. Airway patent. NECK: Trachea midline. Non tender RESPIRATORY: Respiratory rate and effort normal NEURO: AOx3. No focal neurologic deficits. Speaking In full sentences. Normal gait. SKIN: No rash or erythema of visible areas Initial Vital Signs Initial Vital Signs: Vital Signs Temperature 97.5 F L 04/30/23 11:01 Pulse Rate 71 04/30/23 11:01 Respiratory Rate 16 04/30/23 11:01 Blood Pressure 145/87 H 04/30/23 11:01 Pulse Oximetry 100 04/30/23 11:01 Oxygen Delivery Method Room Air 04/30/23 11:01 <Stacey Guzman MD - Last Filed: 04/30/23 14:58> Initial Vital Signs Initial Vital Signs: Vital Signs Temperature 97.5 F L 04/30/23 11:01 Pulse Rate 71 04/30/23 11:01 Respiratory Rate 16 04/30/23 11:01 Blood Pressure 145/87 H 04/30/23 11:01 Pulse Oximetry 100 04/30/23 11:01 Oxygen Delivery Method Room Air 04/30/23 11:01 Course <Radha Porter PA-C - Last Filed: 04/30/23 14:52> Orders Ordered: ED Orders 04/30/23 11:07 CT orbit BI wo con Stat Vital Signs Vital signs: Vital Signs - 8 hr 04/30/23 11:01 04/30/23 13:28 Temperature 97.5 F L Pulse Rate 71 65 Respiratory Rate 16 16 Blood Pressure 145/87 H 125/82 Pulse Oximetry 100 96 Oxygen Delivery Method Room Air Room Air <Stacey Guzman MD - Last Filed: 04/30/23 14:58> Orders Ordered: ED Orders 04/30/23 11:07 CT orbit BI wo con Stat Vital Signs Vital signs: Vital Signs - 8 hr 04/30/23 11:01 04/30/23 13:28 Temperature 97.5 F L Pulse Rate 71 65 Respiratory Rate 16 16 Blood Pressure 145/87 H 125/82 Pulse Oximetry 100 96 Oxygen Delivery Method Room Air Room Air MDM - Eye Problem <Radha Porter PA-C - Last Filed: 04/30/23 14:52> Imaging Data CT Orbit: Radiologist's Impression: [address] [address] [address] Scan Report Signed Patient: Sudhir Butt MR#: [id number] : 1960 Acct:[id number] Age/Sex: 62 / M Date of Service: 04/30/23 Loc: ED Accession Number: [id number] Procedure: CT orbit BI wo con Ordering Provider: Stacey Guzman MD PROCEDURE: CT ORBIT BI WO CON INDICATIONS: r/o retinal detachement TECHNIQUE: Noncontrast 2.5 mm axial images acquired through the orbits, with coronal and sagittal reformats. For radiation dose reduction, the following was used: automated exposure control, adjustment of mA and/or kV according to patient size. COMPARISON: None. FINDINGS: Image quality: Excellent. Orbits: Globes are symmetrical. No metallic foreign bodies. The optic nerves are normal in size. No retrobulbar masses or fat abnormalities. The extra-ocular muscles are normal and symmetrical in appearance. Lacrimal glands are normal in size. Optic chiasm is normal. Intracranial: Visualized portions of the cerebral hemispheres, brainstem, and spinal cord are normal. Bones and sinuses: Visualized calvarium and facial bones appear intact. Small left mucosal retention cysts of the maxillary sinuses. The remaining visualized sinuses and mastoids are clear. IMPRESSION: Normal CT appearance of the orbits. Dictated by: Elver Orellana M.D. on 04/30/2023 at 10:25 Approved by: Elver Orellana M.D. on 04/30/2023 at 10:29 [facility] Narrative Medical decision making narrative: Multiple etiologies for patient's symptoms considered including, but not limited to: Retinal detachment, ocular migraine, CVA, TIA Patient is currently asymptomatic and his vision is at baseline. His visual disturbance lasted approximately 30 minutes earlier this morning and has completely resolved. He had no other concerning symptoms at that time and continues to have no other symptoms including headache and other stroke-like symptoms. CT orbit unremarkable today. Visual acuity is 20 70 right eye and 20 50 left eye uncorrected and patient feels this is his baseline. Discussed patient's symptoms with Dr. Norman water resources engineer on the phone who felt that patient's symptoms are consistent with a ocular migraine which can occur even without headache. He recommends patient follow up outpatient for dilated eye exam and retinal screening but no need for him to be seen this weekend. Patient referred to Ophthalmology and we discussed in detail signs and symptoms to monitor for and when to return to the emergency department should he have any new or worsening symptoms. Recommend patient avoid screens as much as possible today. Patient understands and agrees with plan. Imaging reviewed: CT orbit Consultations: Dr. Norman, water resources engineer. [place] patient's symptoms were consistent with a ocular/retinal migraine and that there is no need for patient to be seen urgently this weekend. He strongly recommends patient call ophthalmology clinic to schedule outpatient visit for dilated eye exam and retinal screening. Findings and discharge diagnosis discussed with patient/family followed by verbalization of understanding Return precautions discussed with patient/family whom verbalize understanding of diagnosis and plan Discharge Plan Departure Patient Disposition: Home Clinical Impression: Visual disturbance Instructions: DI for Visual Field Disturbances Activity Restrictions/Additional Instructions: Thank you for choosing us to care for you today. You were seen for a visual disturbance that occurred earlier this morning. These symptoms can sometimes be concerning for something like a stroke or retinal detachment. However your symptoms were discussed with the lead generation specialist who believes her symptoms were likely due to an ocular or retinal migraine. We still strongly recommend that you call the water resources engineer on Tuesday to schedule an appointment as soon as possible for retinal screening. If you have recurring symptoms or any stroke-like symptoms, such as sudden severe headache, other visual changes, weakness, slurred speech, confusion, then please return to the emergency department immediately. In the meantime please rest her eyes as much as possible and avoid excessive screen time. Prescriptions: No Action CA PANTOTHENATE/FOLIC ACID/VIT (MULTIVITAMIN) 1 tab PO QDAY Qty: 0 S-ADENOSYLMETHIONINE (KOLBY-E) 200 mg PO QDAY Qty: 0 omega 4-dvb-jsl-fish oil [Fish Oil] 1,000 MG capsule 1,000 mg PO DAILY Qty: 0 hyoscyamine sulfate 0.125 mg tablet,disintegrating 0.125 mg PO BID-QID PRN (Reason: dyspepsia) Qty: 30 3RF azelastine-fluticasone 137-50 mcg/spray spray,non-aerosol 1 spray intranasal BID Qty: 23 0RF Rx Instructions: administer into each nostril Referrals: Musa Menon MD [Primary Care Provider] - Brandon Norman MD [Physician] - (Visual flashes x 30 min, consulted Dr. Norman by phone who recommends retinal screening ) Jb Churchill MD [Non-Staff] - (Visual flashes (like lightning bolts) x 30 min on 04/30/23. Consulted with Dr. Norman who says likely ocular migraine but recommends dilated eye exam and retinal screening SHAHANA. ) Stand Alone Forms: Patient Portal/API ED Sign-out <Stacey Guzman MD - Last Filed: 04/30/23 14:58> Cosign ED Attending Cosignature Attestation: I did not see this patient. I was available all times for consultation.
[2023-04-30 13:28] VITALS: BP 125/82; PULSE 65; RESP 16; O2SAT 96
== END 2023-04-30 13:30 | disposition home or self-care (01) ==
PROVIDERS: Emergency Provider Physician Assistant; Family Provider Family Medicine; PCP Family Medicine
DX: H53.8 Other visual disturbances (principal)
CPT/HCPCS: 70480; 99283

== ENCOUNTER → 2023-06-07 08:25 | Outpatient (CLI) | payer OTHER, SELFPAY ==
[2019-08-15 14:47] VITALS: BMI 22.8
[2023-06-07 09:37] LABS: Alanine Aminotransferase 45 IU/L (<50); Albumin 4.6 g/dL (3.5-5.0); Albumin Globulin Ratio 1.7 (1.0-2.8); Alkaline Phosphatase 48 U/L (38-126); Aspartate Aminotransferase 35 IU/L (17-59); Bilirubin Total 0.7 mg/dL (0.2-1.3); Blood Urea Nitrogen 17 mg/dL (9-20); Calcium 9.2 mg/dL (8.4-10.2); Carbon Dioxide 28 mmol/L (22-32); Chloride 106 mmol/L (98-107); Cholesterol 231 mg/dL (140-199); Estimated Glomerular Filt Rate > 60 mL/min (>60); Globulin 2.7 g/dL (1.7-4.1); Glucose 90 mg/dL (80-110); HDL Cholesterol 55 mg/dL (40-60); HEMOLYSIS < 15 (0-50); LDL Cholesterol Calculated 146 mg/dL (<100); Sodium 137 mmol/L (137-145); Total Protein 7.3 g/dL (6.3-8.2); Triglycerides 148 mg/dL (35-150)
== END ==
PROVIDERS: Family Provider Family Medicine; PCP Family Medicine; Referring Provider Family Medicine; Visit Provider Family Medicine
DX: Z00.01 Encounter for general adult medical examination with abnormal findings (principal); E78.5 Hyperlipidemia, unspecified
CPT/HCPCS: 36415; 80053; 80061; 84443

== ENCOUNTER → 2023-06-09 15:01 | Outpatient (CLI) | payer OTHER, SELFPAY ==
[2019-08-15 14:47] VITALS: BMI 22.8
[2023-06-09 16:08] LABS: Appearance Urine UA CLEAR; Bilirubin Urine UA NEGATIVE (NEGATIVE); Color Urine UA YELLOW; Glucose Urine UA NEGATIVE (Negative); Ketones Urine UA NEGATIVE (NEGATIVE); Leukocyte Esterase Urine UA NEGATIVE (NEGATIVE); Nitrite Urine UA NEGATIVE (Negative); Occult Blood Urine UA NEGATIVE (Negative); Protein Urine UA NEGATIVE (Negative); Specific Gravity Urine UA 1.015 (1.000-1.035); Urobilinogen Urine UA 0.2 E.U./dL (0.2)
[2023-06-09 16:17] LABS: Bacteria Urine Occasional (0-1); Culture Indicated Urine Cult Not Indicated; RBC Urine 0-1/HPF (0-5/HPF); Squamous Epithelial Cell Urine None Seen (0-5/HPF); Urine Volume 10mL (spun); WBC Urine 0-1/HPF (0-5/HPF)
[2023-06-09 18:35] LABS: Prostate Specific Antigen Scrn 1.09 ng/mL (0.1-4.0)
== END ==
PROVIDERS: Family Provider Family Medicine; PCP Family Medicine; Referring Provider Family Medicine; Visit Provider Family Medicine
DX: Z12.5 Encounter for screening for malignant neoplasm of prostate (principal); Z85.51 Personal history of malignant neoplasm of bladder; E78.5 Hyperlipidemia, unspecified
CPT/HCPCS: 36415; 81001; G0103

== ENCOUNTER → 2023-06-14 09:23 | Outpatient (CLI) | payer OTHER, SELFPAY ==
[2019-08-15 14:47] VITALS: BMI 22.8
--- NOTE | 2023-06-14 09:24 | DI.RAD.S_ITS ---
PROCEDURE: XR LUMBAR SPINE MIN 4V INDICATIONS: chronic low back pain TECHNIQUE: 5 views of the lumbar spine were acquired, including bilateral oblique views. COMPARISON: None. FINDINGS: Bones: 5 nonrib-bearing vertebrae are present. There is normal bony alignment. No vertebral body compression fractures. No suspicious bony lesions. Degenerative disc disease, moderate at L1-L2, and mild at other levels. With E at L 4-L5 and L5-S1. Soft tissues: Overlying bowel gas pattern is normal. No suspicious soft tissue calcifications. Oblique images: No pars defects. IMPRESSION: Degenerative disc and facet disease in lumbar spine. Dictated by: Mary Mcdonald M.D. on 06/14/2023 at 13:28 Approved by: Mary Mcdonald M.D. on 06/14/2023 at 13:29
== END ==
LOC: RAD 09:24
PROVIDERS: Family Provider Family Medicine; PCP Family Medicine; Referring Provider Family Medicine; Visit Provider Family Medicine
DX: M51.36 Other intervertebral disc degeneration, lumbar region (principal); M47.816 Spondylosis without myelopathy or radiculopathy, lumbar region; M54.50 Low back pain, unspecified
CPT/HCPCS: 72110

== ENCOUNTER → 2024-03-20 10:31 | Outpatient (CLI) | payer OTHER, SELFPAY ==
[2019-08-15 14:47] VITALS: BMI 22.8
--- NOTE | 2024-03-20 10:32 | DI.RAD.S_ITS ---
PROCEDURE: XR CHEST 2V INDICATIONS: chronic cough TECHNIQUE: 2 views of the chest were acquired. COMPARISON: None. FINDINGS: Surgical changes and devices: None. Lungs and pleura: Lungs are clear. No pleural effusions or pneumothorax. Mediastinum: Mediastinal contours are normal. Heart size is normal. Bones and chest wall: No suspicious bony abnormalities. Soft tissues appear unremarkable. IMPRESSION: No acute cardiopulmonary abnormality is seen. Dictated by: Regino Rivero M.D. on 03/20/2024 at 15:16 Approved by: Regino Rivero M.D. on 03/20/2024 at 15:17
== END ==
PROVIDERS: Family Provider Family Medicine; PCP Family Medicine; Referring Provider Family Medicine; Visit Provider Family Medicine
DX: R05.3 Chronic cough (principal)
CPT/HCPCS: 71046

== ENCOUNTER → 2024-04-03 09:38 | Outpatient (CLI) | payer OTHER, SELFPAY ==
[2019-08-15 14:47] VITALS: BMI 22.8
[2024-04-09 08:09] LABS: Percent Free Testosterone 4.46 % (1.50-4.20); Testosterone Free 13.07 ng/dL (5.00-21.00); Testosterone Total 293.1 ng/dL (264.0-916.0)
== END ==
PROVIDERS: Family Provider Family Medicine; PCP Family Medicine; Referring Provider Family Medicine; Visit Provider Family Medicine
DX: R79.89 Other specified abnormal findings of blood chemistry (principal)
CPT/HCPCS: 36415; 84402; 84403

== ENCOUNTER → 2024-06-12 08:02 | Outpatient (CLI) | payer OTHER, SELFPAY ==
[2019-08-15 14:47] VITALS: BMI 22.8
[2024-06-12 08:36] LABS: Add Manual Diff / Slide Review NO; Basophils Absolute Auto 100 /uL (0-100); Eosinophils Absolute Auto 200 /uL (0-450); Eosinophils Percent Auto 3.9 % (2-4); Hematocrit 42.2 % (41-53); Hemoglobin 14.2 g/dL (13.5-17.5); Lymphocytes Absolute Auto 2300 /uL (1100-4500); Lymphocytes Percent Auto 45.3 % (25-40); Mean Corpuscular HGB Conc 33.6 % (30-36); Mean Corpuscular Hemoglobin 28.9 PG (26-34); Mean Corpuscular Volume 85.8 fL (80-100); Monocytes Absolute Auto 600 /uL (0-900); Neutrophils Absolute Auto 2000 /uL (1500-7000); Neutrophils Percent Auto 38.8 % (50-75); Platelet Count 251 X10^3/uL (150-400); Red Blood Cell Count 4.92 X10^6/uL (4.5-5.9); Red Cell Distribution Width 14.2 % (11.6-14.8); White Blood Cell Count 5.1 X10^3/uL (4.5-11.0)
[2024-06-12 08:50] LABS: Alanine Aminotransferase 61 IU/L (<50); Albumin 4.5 g/dL (3.5-5.0); Albumin Globulin Ratio 1.9 (1.0-2.8); Alkaline Phosphatase 44 U/L (38-126); Aspartate Aminotransferase 40 IU/L (17-59); BUN Creatinine Ratio 13.5 (6-22); Bilirubin Total 0.7 mg/dL (0.2-1.3); Blood Urea Nitrogen 15 mg/dL (9-20); Calcium 9.5 mg/dL (8.4-10.2); Carbon Dioxide 26 mmol/L (22-32); Chloride 104 mmol/L (98-107); Cholesterol 236 mg/dL (140-199); Estimated Glomerular Filt Rate > 60 mL/min (>60); Globulin 2.4 g/dL (1.7-4.1); Glucose 93 mg/dL (70-99); HDL Cholesterol 58 mg/dL (40-60); HEMOLYSIS < 15 (0-50); LDL Cholesterol Calculated 153 mg/dL (<100); Potassium 4.4 mmol/L (3.4-5.1); Sodium 137 mmol/L (137-145); Total Protein 6.9 g/dL (6.3-8.2); Triglycerides 126 mg/dL (35-150)
[2024-06-12 09:19] LABS: Prostate Specific Antigen Scrn 1.21 ng/mL (0.1-4.0)
[2024-06-12 10:12] LABS: Creatinine Urine Random 66.79 mg/dL
[2024-06-12 10:18] LABS: Microalbumin Urine Random < 0.6 mg/dL (0-1.6)
[2024-06-13 04:36] LABS: Apolipoprotein B 107 mg/dL (<90)
== END ==
PROVIDERS: Family Provider Family Medicine; PCP Family Medicine; Referring Provider Family Medicine; Visit Provider Family Medicine
DX: Z12.5 Encounter for screening for malignant neoplasm of prostate (principal); L57.0 Actinic keratosis; E78.5 Hyperlipidemia, unspecified; K58.9 Irritable bowel syndrome, unspecified; M54.50 Low back pain, unspecified; K63.5 Polyp of colon; R05.3 Chronic cough; Z85.51 Personal history of malignant neoplasm of bladder
CPT/HCPCS: 36415; 80053; 80061; 82043; 82172; 82570; 85025; G0103